=== PATIENT | male | born 1935 | race Caucasian/White ===

== ENCOUNTER 2021-01-21 09:38 | Emergency (ER) | payer MEDICARE, SELFPAY ==
[2021-01-21] VITALS (13 sets, daily range): BP systolic 158–227; BP diastolic 74–102; PULSE 61–86; RESP 14–25; TEMP 36.7; O2SAT 96–99; BMI 31.3
--- NOTE | 2021-01-21 09:49 | DI.RAD.S_ITS ---
PROCEDURE: XR CHEST 1V INDICATIONS: chest pain TECHNIQUE: One view of the chest was acquired. COMPARISON: None. FINDINGS: Surgical changes and devices: Sternotomy. There is an electronic pacing device in the left upper hemithorax Lungs and pleura: Lungs are clear. No pleural effusions or pneumothorax. Mediastinum: Mediastinal contours appear normal. Heart size is normal. Bones and chest wall: No suspicious bony lesions. Overlying soft tissues appear unremarkable. IMPRESSION: No acute cardiopulmonary disease. Dictated by: Kushal Marquis M.D. on 01/21/2021 at 10:00 Approved by: Kushal Marquis M.D. on 01/21/2021 at 10:01
[2021-01-21 10:02] LABS: Add Manual Diff / Slide Review NO; Basophils Absolute Auto 0 /uL (0-100); Basophils Percent Auto 0.6 % (0-2); Eosinophils Absolute Auto 200 /uL (0-450); Eosinophils Percent Auto 3.8 % (2-4); Hematocrit 41.5 % (41-53); Hemoglobin 14.1 g/dL (13.5-17.5); Lymphocytes Absolute Auto 1800 /uL (1100-4500); Mean Corpuscular Hemoglobin 33.5 PG (26-34); Mean Corpuscular Volume 98.6 fL (80-100); Monocytes Absolute Auto 500 /uL (0-900); Monocytes Percent Auto 8.4 % (3-14); Neutrophils Absolute Auto 3200 /uL (1500-7000); Neutrophils Percent Auto 56.2 % (50-75); Platelet Count 167 X10^3/uL (150-400); Red Blood Cell Count 4.21 X10^6/uL (4.5-5.9); Red Cell Distribution Width 15.1 % (11.6-14.8); White Blood Cell Count 5.8 X10^3/uL (4.5-11.0)
--- NOTE | 2021-01-21 10:07 | ED.CHESTPAIN ---
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 Received a call from his primary school principal stating that he would like him to be evaluated with labs because today in the office he was having chest discomfort. The patient did take 1 of his nitroglycerin which resolved all of his symptoms. Patient does have chronic kidney disease which limits his capability of obtaining interventions and the primary school principal stated that they would like to continue with medical management. The time my evaluation he is asymptomatic. Related Data Allergies Allergy/AdvReac Type Severity Reaction Status Date / Time codeine Allergy Verified 01/21/21 09:47 Penicillins Allergy Verified 01/21/21 09:47 Review of Systems Constitutional Constitutional: Denies fever(s) and Denies headache(s) ENT Ears, Nose, Mouth, and Throat: Denies headache(s) Cardiovascular Cardiovascular: Reports chest pain and Denies dyspnea Respiratory Respiratory: Denies dyspnea Gastrointestinal Gastrointestinal: Denies abdominal pain Musculoskeletal Musculoskeletal: Denies arthralgias and Denies myalgias Integumentary/Breasts Skin/Breast: Denies rash Neurologic Neurologic: Denies behavioral changes and Denies headache(s) Psychiatric Psychiatric: Denies behavioral changes Hematologic/Lymphatic Hematologic/Lymphatic: Denies easy bleeding and Denies easy bruising Allergic/Immunologic Allergic/Immunologic: Denies urticaria Patient History Medical History Coronary artery disease Social History Smoking Status: Unknown if ever smoked Smoking Status: Unknown if ever smoked alcohol intake frequency: holidays/special occasions only Substance Use Type: does not use Exam Initial Vital Signs Initial Vital Signs: Vital Signs Temperature 98.0 F 01/21/21 09:41 Pulse Rate 86 01/21/21 09:41 Respiratory Rate 14 01/21/21 09:41 Blood Pressure 227/102 H 01/21/21 09:41 Pulse Oximetry 96 01/21/21 09:41 Const General: cooperative, comfortable and well developed Limitations: mental status not altered HENMT Head: normal to inspection and normocephalic Resp Effort & Inspection: normal respiratory effort Auscultation: clear to auscultation bilaterally Cardio Rate: regular rate Rhythm: regular rhythm GI Inspection: non-distended Palpation: soft Skin Lesions: no lesions Rashes: no rashes Neuro General: patient alert and patient awake Cognition: normal cognition Speech: speech normal Extrem General: normal to inspection and capillary refill normal Psych Appearance: grossly normal and well kempt Course Orders Ordered: ED Orders 01/21/21 09:41 EKG-12 Lead Stat 01/21/21 09:47 Complete Blood Count AUTO DIFF Stat Comprehensive Metabolic Panel Stat Lipase Stat Partial Thromboplastin Time Stat Prothrombin Time INR Stat Troponin & CK Cardiac Panel Stat 01/21/21 09:49 XR chest 1V Stat 01/21/21 12:00 Troponin & CK Cardiac Panel Stat 01/21/21 12:09 EKG-12 Lead Stat Vital Signs Vital signs: Vital Signs - 8 hr 01/21/21 09:41 01/21/21 09:45 01/21/21 10:00 Temperature 98.0 F Pulse Rate 86 83 64 Respiratory Rate 14 25 H Blood Pressure 227/102 H Pulse Oximetry 96 99 97 01/21/21 10:11 01/21/21 10:30 01/21/21 10:31 Temperature Pulse Rate 68 61 65 Respiratory Rate 22 17 16 Blood Pressure 178/86 H Pulse Oximetry 97 97 97 01/21/21 10:49 01/21/21 11:00 01/21/21 11:01 Temperature Pulse Rate 63 64 62 Respiratory Rate 20 21 18 Blood Pressure 158/75 H 190/87 H Pulse Oximetry 98 98 98 01/21/21 11:30 Temperature Pulse Rate 61 Respiratory Rate 19 Blood Pressure 167/79 H Pulse Oximetry 96 MDM - Chest Pain Lab Data Result diagrams: 01/21/21 09:47 01/21/21 09:47 Labs: Lab Results 01/21/21 01/21/21 01/21/21 Range/Units 09:47 09:47 09:47 WBC 5.8 (4.5-11.0) X10^3/uL RBC 4.21 L (4.5-5.9) X10^6/uL Hgb 14.1 (13.5-17.5) g/dL Hct 41.5 (41-53) % MCV 98.6 (80-100) fL MCH 33.5 (26-34) PG MCHC 34.0 (30-36) % RDW 15.1 H (11.6-14.8) % Plt Count 167 (150-400) X10^3/uL Neut % (Auto) 56.2 (50-75) % Lymph % (Auto) 31.0 (25-40) % Mckean % (Auto) 8.4 (3-14) % Eos % (Auto) 3.8 (2-4) % Baso % (Auto) 0.6 (0-2) % Neut # (Auto) 3200 (4021-5509) /uL Lymph # (Auto) 1800 (9488-3060) /uL Mckean # (Auto) 500 (0-900) /uL Eos # (Auto) 200 (0-450) /uL Baso # (Auto) 0 (0-100) /uL PT 10.9 (10.1-12.7) SECONDS INR 0.9 (0.9-1.3) APTT 34 (26.4-36.2) SECONDS Sodium 140 (137-145) mmol/L Potassium 3.9 (3.4-5.1) mmol/L Chloride 103 (98-107) mmol/L Carbon Dioxide 30 (22-32) mmol/L BUN 29 H (9-20) mg/dL Creatinine 2.37 H (0.66-1.25) mg/dL Estimated GFR 26.4 L (>60) mL/min BUN/Creatinine Ratio 12.2 (6-22) Glucose 113 H (80-110) mg/dL Calcium 10.6 H (8.4-10.2) mg/dL Total Bilirubin 0.9 (0.2-1.3) mg/dL AST 29 (17-59) IU/L ALT 21 (<50) IU/L Alkaline Phosphatase 144 H (38-126) U/L Total Creatine Kinase 76 (55-170) U/L CK-MB (CK-2) TNP CK-MB (CK-2) Rel Index TNP Troponin I 0.031 (0.01-0.034) ng/mL Total Protein 7.7 (6.3-8.2) g/dL Albumin 4.5 (3.5-5.0) g/dL Globulin 3.2 (1.7-4.1) g/dL Albumin/Globulin Ratio 1.4 (1.0-2.8) Lipase 101 (23-300) U/L 01/21/21 Range/Units 12:00 WBC (4.5-11.0) X10^3/uL RBC (4.5-5.9) X10^6/uL Hgb (13.5-17.5) g/dL Hct (41-53) % MCV (80-100) fL MCH (26-34) PG MCHC (30-36) % RDW (11.6-14.8) % Plt Count (150-400) X10^3/uL Neut % (Auto) (50-75) % Lymph % (Auto) (25-40) % Mckean % (Auto) (3-14) % Eos % (Auto) (2-4) % Baso % (Auto) (0-2) % Neut # (Auto) (0099-9576) /uL Lymph # (Auto) (5466-1860) /uL Mckean # (Auto) (0-900) /uL Eos # (Auto) (0-450) /uL Baso # (Auto) (0-100) /uL PT (10.1-12.7) SECONDS INR (0.9-1.3) APTT (26.4-36.2) SECONDS Sodium (137-145) mmol/L Potassium (3.4-5.1) mmol/L Chloride (98-107) mmol/L Carbon Dioxide (22-32) mmol/L BUN (9-20) mg/dL Creatinine (0.66-1.25) mg/dL Estimated GFR (>60) mL/min BUN/Creatinine Ratio (6-22) Glucose (80-110) mg/dL Calcium (8.4-10.2) mg/dL Total Bilirubin (0.2-1.3) mg/dL AST (17-59) IU/L ALT (<50) IU/L Alkaline Phosphatase (38-126) U/L Total Creatine Kinase 67 (55-170) U/L CK-MB (CK-2) TNP CK-MB (CK-2) Rel Index TNP Troponin I 0.027 (0.01-0.034) ng/mL Total Protein (6.3-8.2) g/dL Albumin (3.5-5.0) g/dL Globulin (1.7-4.1) g/dL Albumin/Globulin Ratio (1.0-2.8) Lipase (23-300) U/L Imaging Data Chest x-ray: Radiologist's Impression: [address] [id number] ReportSigned Patient: Yaakov Dye EMR#: [id number]: 7Acct:[id number]/Sex: 85 / MDate of Service: 01/21/21Loc: EDAccession Number: [id number] Procedure: XR chest 1V Ordering Provider: James Beckham D.O. PROCEDURE: XR CHEST 1V INDICATIONS: chest pain TECHNIQUE: One view of the chest was acquired. COMPARISON: None. FINDINGS: Surgical changes and devices: Sternotomy. There is an electronic pacing device in the left upper hemithorax Lungs and pleura: Lungs are clear. No pleural effusions or pneumothorax. Mediastinum: Mediastinal contours appear normal. Heart size is normal. Bones and chest wall: No suspicious bony lesions. Overlying soft tissues appear unremarkable. IMPRESSION: No acute cardiopulmonary disease. Dictated by: uKshal Marquis M.D. on 01/21/2021 at 10:00 Approved by: Kushal Marquis M.D. on 01/21/2021 at 10:01 ECG Data Attestation: I personally reviewed and interpreted this ECG as follows: Prior ECG tracings: not available for review Interpretation: Sinus rhythm Ventricular rate 80 to Left axis deviation Right bundle branch block LVH Repeat EKG shows sinus rhythm Rate is 62 Left axis deviation Right bundle branch block Initial EKG had more of a left bundle-branch block appearance This EKG is a more narrow QRS complex, still sinus rhythm V1 V2 V3 look very similar however before V5 and 6 now has narrow QRS complexes MDM Narrative Medical decision making narrative: Patient has known coronary artery disease and is currently being medical managed. His troponins are unchanged. He has been asymptomatic since being here in the emergency department. He has already discuss changes to his medications with his primary school principal. Plan will be is to discharge him home to proceed with those changes in medications. He was given return precautions and follow-up instructions. He expressed understanding and agreement. Discharge Plan Departure Patient Disposition: Home Clinical Impression: Chest pain Instructions: DI for Chest Pain Activity Restrictions/Additional Instructions: Recommend that you make all of the changes to your medications that you discuss with your primary school principal earlier today. Contact your primary doctor and also your primary school principal for follow-up. Return to the emergency department for any new or worsening symptoms Referrals: Abigail Renteria PA-C [Primary Care Provider] -
[2021-01-21 10:08] LABS: INR 0.9 (0.9-1.3); Prothrombin Time 10.9 SECONDS (10.1-12.7)
[2021-01-21 10:11] LABS: PTT Partial Thromboplastin Tim 34 SECONDS (26.4-36.2)
[2021-01-21 10:15] LABS: Alanine Aminotransferase 21 IU/L (<50); Albumin 4.5 g/dL (3.5-5.0); Albumin Globulin Ratio 1.4 (1.0-2.8); Alkaline Phosphatase 144 U/L (38-126); Aspartate Aminotransferase 29 IU/L (17-59); BUN Creatinine Ratio 12.2 (6-22); Bilirubin Total 0.9 mg/dL (0.2-1.3); Blood Urea Nitrogen 29 mg/dL (9-20); Calcium 10.6 mg/dL (8.4-10.2); Carbon Dioxide 30 mmol/L (22-32); Chloride 103 mmol/L (98-107); Creatine Kinase 76 U/L (55-170); Estimated Glomerular Filt Rate 26.4 mL/min (>60); Globulin 3.2 g/dL (1.7-4.1); Glucose 113 mg/dL (80-110); HEMOLYSIS < 15 (0-50); Lipase 101 U/L (23-300); Potassium 3.9 mmol/L (3.4-5.1); Sodium 140 mmol/L (137-145); Total Protein 7.7 g/dL (6.3-8.2)
[2021-01-21 10:25] LABS: Troponin I 0.031 ng/mL (0.01-0.034)
[2021-01-21 12:26] LABS: Creatine Kinase 67 U/L (55-170)
[2021-01-21 12:40] LABS: Troponin I 0.027 ng/mL (0.01-0.034)
== END 2021-01-21 13:08 | disposition home or self-care (01) ==
PROVIDERS: Emergency Provider Emergency Medicine; Family Provider Family Medicine; PCP Physician Assistant Medical
DX: R07.9 Chest pain, unspecified (principal)
CPT/HCPCS: 36415; 71045; 80053; 82550; 83690; 84484; 85025; 85610; 85730; 93005; 99283; 99284